=== PATIENT | male | born 1945 | race Caucasian/White ===

== ENCOUNTER 2016-06-14 07:38 | Outpatient (CLI) | payer MEDICARE, OTHER | END 2016-06-14 07:39 | disposition home or self-care (01) | DX: E11.9 Type 2 diabetes mellitus without complications (principal) ==

== ENCOUNTER 2016-07-05 10:09 | Outpatient (CLI) | payer MEDICARE, OTHER | END 2016-07-05 10:10 | disposition home or self-care (01) | DX: G47.33 Obstructive sleep apnea (adult) (pediatric) (principal) | CPT/HCPCS: 99214; G0463 ==

== ENCOUNTER 2016-09-11 14:34 | Outpatient (CLI) | payer MEDICARE, OTHER | END 2016-09-11 23:59 | disposition home or self-care (01) | DX: E11.9 Type 2 diabetes mellitus without complications (principal) ==

== ENCOUNTER 2016-09-17 13:27 | Outpatient (CLI) | payer MEDICARE, OTHER | END 2016-09-17 13:28 | disposition home or self-care (01) | DX: R39.11 Hesitancy of micturition (principal); E03.9 Hypothyroidism, unspecified ==

== ENCOUNTER 2016-11-05 08:00 | Outpatient (CLI) | payer MEDICARE, OTHER | END 2016-11-05 08:01 | LOC: LAB.N 08:00 | PROVIDERS: ATTEND Nurse Practitioner Gerontology | DX: R94.6 Abnormal results of thyroid function studies (principal) | CPT/HCPCS: 36415; 84443 ==

== ENCOUNTER 2016-12-25 08:00 | Outpatient (CLI) | payer MEDICARE, OTHER ==
[2016-12-25 13:36] LABS: HEMOGLOBIN A1C 0.86 g/dL
== END 2016-12-25 08:01 ==
LOC: LAB.N 08:00
PROVIDERS: ATTEND Nurse Practitioner Gerontology
DX: E11.22 Type 2 diabetes mellitus with diabetic chronic kidney disease (principal)
CPT/HCPCS: 36415; 83036; 84443

== ENCOUNTER 2017-02-11 14:33 | Outpatient (CLI) | payer MEDICARE, OTHER ==
[2017-02-11 19:55] LABS: ALBUMIN/GLOBULIN RATIO 1.4 (1.0-2.2); BILIRUBIN,TOTAL 0.7 mg/dL (0.2-1.0); CREATININE 1.1 mg/dL (0.6-1.2); POTASSIUM 4.4 mmol/L (3.5-5.0); TOTAL PROTEIN 6.9 g/dL (6.7-8.2)
== END 2017-02-11 14:34 | disposition home or self-care (01) ==
LOC: LAB.N 14:33
PROVIDERS: ATTEND Nurse Practitioner Gerontology
DX: E11.22 Type 2 diabetes mellitus with diabetic chronic kidney disease (principal)
CPT/HCPCS: 36415; 80053

== ENCOUNTER 2017-03-27 14:52 | Outpatient (CLI) | payer MEDICARE, OTHER ==
[2017-03-27 13:51] LABS: HEMOGLOBIN A1C 0.93 g/dL
== END 2017-03-27 14:53 | disposition home or self-care (01) ==
LOC: LAB.N 14:52
PROVIDERS: ATTEND Nurse Practitioner Gerontology
DX: E11.22 Type 2 diabetes mellitus with diabetic chronic kidney disease (principal)
CPT/HCPCS: 36415; 83036

== ENCOUNTER 2017-07-26 09:35 | Outpatient (CLI) | payer MEDICARE, OTHER ==
[2017-07-26 13:08] LABS: HB2 TOTAL 15.5 g/dL; HEMOGLOBIN A1C 1.03 g/dL; HEMOGLOBIN A1C % 8.2 % (4.6-6.2)
== END 2017-07-26 09:36 | disposition home or self-care (01) ==
LOC: LAB.N 09:35
PROVIDERS: ATTEND Nurse Practitioner Gerontology
DX: E11.22 Type 2 diabetes mellitus with diabetic chronic kidney disease (principal)
CPT/HCPCS: 36415; 83036

== ENCOUNTER 2017-08-07 09:59 | Outpatient (CLI) | payer MEDICARE, OTHER | END 2017-08-07 10:00 | disposition home or self-care (01) | LOC: SC 09:59 | PROVIDERS: ATTEND Nurse Practitioner Family | DX: G47.33 Obstructive sleep apnea (adult) (pediatric) (principal); G47.00 Insomnia, unspecified | CPT/HCPCS: 99214; G0463; 99212 ==

== ENCOUNTER 2017-10-31 09:52 | Outpatient (CLI) | payer MEDICARE, OTHER ==
[2017-10-31 12:38] LABS: HEMOGLOBIN A1C 0.68 g/dL; HEMOGLOBIN A1C % 6.3 % (4.6-6.2)
== END 2017-10-31 09:53 | disposition home or self-care (01) ==
LOC: LAB.N 09:52
PROVIDERS: ATTEND Nurse Practitioner Gerontology
DX: E11.22 Type 2 diabetes mellitus with diabetic chronic kidney disease (principal)
CPT/HCPCS: 36415; 83036

== ENCOUNTER 2018-02-04 08:00 | Outpatient (CLI) | payer MEDICARE, OTHER ==
[2018-02-04 13:10] LABS: CHOL/HDL RATIO 7.4 (<5.0); CHOLESTEROL 295 mg/dL; HDL CHOLESTEROL 40 mg/dL; LDL CHOLESTEROL,CALCULATED 208 mg/dL; LDL/HDL RATIO 5.2 (<3.6); VLDL CHOLESTEROL 47 mg/dL
[2018-02-04 13:18] LABS: HB2 TOTAL 14.7 g/dL; HEMOGLOBIN A1C 0.8 g/dL; HEMOGLOBIN A1C % 7.1 % (4.6-6.2)
== END 2018-02-04 08:01 ==
LOC: LAB.N 08:00
PROVIDERS: ATTEND Nurse Practitioner Gerontology
DX: E11.9 Type 2 diabetes mellitus without complications (principal); E03.9 Hypothyroidism, unspecified; E78.5 Hyperlipidemia, unspecified
CPT/HCPCS: 36415; 80061; 83036; 83721; 84443

== ENCOUNTER 2018-05-06 07:58 | Outpatient (CLI) | payer MEDICARE, OTHER ==
[2018-05-06 14:54] LABS: CALCIUM 8.9 mg/dL (8.5-10.3); CREATININE 1.2 mg/dL (0.6-1.2)
[2018-05-06 15:23] LABS: HEMOGLOBIN A1C 0.63 g/dL
== END 2018-05-06 23:59 ==
LOC: LAB.N 07:58
PROVIDERS: ATTEND Nurse Practitioner Gerontology
DX: E11.22 Type 2 diabetes mellitus with diabetic chronic kidney disease (principal)
CPT/HCPCS: 36415; 80048; 83036

== ENCOUNTER 2018-08-01 08:00 | Outpatient (CLI) | payer MEDICARE, OTHER ==
[2018-08-01 13:24] LABS: PSA FREE 0.42 ng/mL (0.16-2.81)
[2018-08-01 13:25] LABS: PSA TOTAL 2.42 ng/mL (0.000-2.000)
== END 2018-08-01 23:59 | disposition home or self-care (01) ==
LOC: LAB.N 08:00
PROVIDERS: ATTEND Nurse Practitioner Gerontology
DX: N40.0 Benign prostatic hyperplasia without lower urinary tract symptoms (principal)
CPT/HCPCS: 36415; 84153; 84154

== ENCOUNTER 2018-08-11 08:14 | Outpatient (CLI) | payer MEDICARE, OTHER ==
[2018-08-11 14:35] LABS: CHOLESTEROL 151 mg/dL; HDL CHOLESTEROL 50 mg/dL; LDL CHOLESTEROL,CALCULATED 78 mg/dL; LDL/HDL RATIO 1.6 (<3.6); VLDL CHOLESTEROL 23 mg/dL
[2018-08-11 14:49] LABS: HB2 TOTAL 15.5 g/dL; HEMOGLOBIN A1C 0.54 g/dL; HEMOGLOBIN A1C % 5.3 % (4.6-6.2)
== END 2018-08-11 23:59 ==
LOC: LAB.N 08:14
PROVIDERS: ATTEND Nurse Practitioner Gerontology
DX: E11.22 Type 2 diabetes mellitus with diabetic chronic kidney disease (principal); E78.5 Hyperlipidemia, unspecified; N18.9 Chronic kidney disease, unspecified
CPT/HCPCS: 36415; 80061; 83036; 83721

== ENCOUNTER 2018-11-17 07:33 | Outpatient (CLI) | payer MEDICARE, OTHER ==
[2018-11-17 12:33] LABS: HB2 TOTAL 14.5 g/dL; HEMOGLOBIN A1C 0.56 g/dL; HEMOGLOBIN A1C % 5.7 % (4.6-6.2)
== END 2018-11-17 23:59 | disposition home or self-care (01) ==
LOC: LAB.N 07:33
PROVIDERS: ATTEND Nurse Practitioner Gerontology
DX: E11.22 Type 2 diabetes mellitus with diabetic chronic kidney disease (principal)
CPT/HCPCS: 36415; 83036

== ENCOUNTER 2019-01-06 09:10 | Outpatient (CLI) | payer MEDICARE, OTHER ==
[2019-01-06 10:25] VITALS: BP 110/60
--- NOTE | 2019-01-06 10:25 | SLEEP CARE CONSULTATION ---
Information from patient questionnaire entered by Candace Aguila. I have reviewed and concur with the information entered by Candace Aguila. This document represents the service I personally performed and the decisions made by me, Dorota Hernandez, RN, MSN, WO[employer]. History of Present Illness Previous diagnosis: Severe, Obstructive Sleep Apnea-Hypopnea Syndrome AHI: 66.6 Reason for CPAP/BiPAP follow up: annual Equipment type: CPAP Equipment obtained from: [employer] Mask style: Nasal (True Blue) Mask brand: Respironics Backup mask available: Yes Last cushion change: a month Prior sleep studies: Yes Year and Where: 2006 here HPI additional information: Changes in medical history since last seen are a "arterectomy" of right leg to improve circulation. CPAP Compliance Data - Data Reviewed with Patient Average duration of nightly device use: 8H 28M Compliance rate %: 96 Current pressure setting (cmH2O): 15 Average residual AHI: 0.7 Average large leak: 0.6 liters per hour Subjective Patient concerns: reports: air blowing in eyes (initially only when adjusting mask for night set up ). denies: aerophagia, mask discomfort (only when over tightens), mask leak noise, condensation in mask/hose, nasal congestion, dry mouth, nose, throat, epistaxis Observed to snore while using device: No On therapy, patient: reports: sleeping better, awakening more refreshed, being more awake and alert during the day, more rested overall. denies: drowsiness while driving Initial [place] Sleepiness Scale score: 4 Current [place] Sleepiness Scale score: 4 Allergies and Home Medications Known drug allergies: Yes (penicillin) Home medication list reviewed: Yes Allergy and home medication list: Medication Name (generic/name brand) Strength & Dosage Omeprazole 20mg cap one daily Mometasone Furoate 0.1% Ext. Cream Apply as directed Nystatin-Triamcinolone [id number]% Apply as directed Vitamin D3 5000Unit cap one daily Synthroid 50mcg tab one daily Magnesium Oxide 400mg cap one daily Terazosin HCl 10cap one daily HS Econazole Nitrate 1% ext. cream Apply to feet daily Desonide 0.05% ext. lotion Apply to face daily Apidra Solostar 100 UNIT/ML Inject daily with meals and on SS Lantus Solostar 100 UNIT/ML Inject 70 units SQ at bedtime Fish Oil Concentrate 1000mg cap one twice daily Plavix 75mg tab one daily Metoprolol Tartrate 25mg tab one twice a day omeprazole 20mg daily as needed Losartan Potassium 25mg tab one daily Cinsulin 1000mg twice daily B1 150mg daily D3 5000units Proscar 5mg HS Crestor 10mg HS Review of Systems Review of systems same as previous: No Physical Exam Blood Pressure: 110/60 Cuff size: long Heart Rate: 67 O2 Saturation: 97 Weight (kg): 225.2 kg Weight change since last visit: lost 26 pounds since last visit Impression and Plan 1. Obstructive Sleep Apnea-Hypopnea Syndrome, with good treatment compliance and good apnea control. On CPAP therapy, the patient has better sleep quality and is more rested overall. He is pleased with treatment and plans on continuing. He has lost 26 pounds and plans on losing about 50 more pounds. I discussed how continued significant weight loss can reduce his pressure requirements. Thus I will change him to an autoCPAP setting of [id number]. He will call me if any pressure discomfort with change. Other symptoms to report that indicate pressure adjustment needed were discussed. I gave him an updated CPAP supply replacement schedule for reference. He is due for a new device but current one is functioning fine and declined updating at this time. He was advised of symptoms of device failure and to contact this office JUN due to severity of apnea. If he is planning on a vacation out of town, it may be prudent to update before leaving. Updating device requires a DWO prescription and he must be seen within 6 months of prescription. Patient's apnea severity and rationale for treatment to reduce apnea, improve sleep quality and reduce cardiovascular and cerebrovascular events was reviewed. I also reviewed the benefit of consistent device use of CPAP for hypertension, diabetes. * Change CPAP pressure to 12-15 cmH2O * Update device if any disfunction noted or increase in noise. * Notify me if snoring with mask or feeling that the pressure is too much or too little * Continue to lose weight * Return for follow up in 1 year , or sooner if concerns arise I spent 100% of this [34] minute visit face to face with the patient with greater than 50% of this was spent time counseling the patient and coordination of care.
== END 2019-01-06 09:11 | disposition home or self-care (01) ==
LOC: SC 09:10
PROVIDERS: ATTEND Nurse Practitioner Family
DX: G47.33 Obstructive sleep apnea (adult) (pediatric) (principal)
CPT/HCPCS: 99215; G0463; 99212

== ENCOUNTER 2019-02-20 08:22 | Outpatient (CLI) | payer MEDICARE, OTHER ==
[2019-02-20 13:51] LABS: HB2 TOTAL 14.9 g/dL; HEMOGLOBIN A1C 0.62 g/dL
== END 2019-02-20 23:59 | disposition home or self-care (01) ==
LOC: LAB.N 08:22
PROVIDERS: ATTEND Nurse Practitioner Gerontology
DX: E11.22 Type 2 diabetes mellitus with diabetic chronic kidney disease (principal); N18.9 Chronic kidney disease, unspecified
CPT/HCPCS: 36415; 83036

== ENCOUNTER 2019-04-28 11:37 | Outpatient (CLI) | payer MEDICARE, OTHER ==
[2019-04-28 19:00] LABS: BUN - BLOOD UREA NITROGEN 23 mg/dL (6-20); CALCIUM 8.8 mg/dL (8.5-10.3); CARBON DIOXIDE - CO2 28 mmol/L (21-32); CHLORIDE 107 mmol/L (101-111); CHOL/HDL RATIO 3.1 (<5.0); CHOLESTEROL 129 mg/dL; CREATININE 1.4 mg/dL (0.6-1.2); GFR - MDRD 49 (>89); GLUCOSE 155 mg/dL (70-100); HDL CHOLESTEROL 41 mg/dL; LDL CHOLESTEROL,CALCULATED 70 mg/dL; LDL/HDL RATIO 1.7 (<3.6); SODIUM 141 mmol/L (135-145); VLDL CHOLESTEROL 18 mg/dL
== END 2019-04-28 23:59 | disposition home or self-care (01) ==
LOC: LAB.N 11:37
PROVIDERS: ATTEND Internal Medicine Interventional Cardiology
DX: I73.9 Peripheral vascular disease, unspecified (principal); E11.9 Type 2 diabetes mellitus without complications; E78.2 Mixed hyperlipidemia
CPT/HCPCS: 36415; 80048; 80061; 83721

== ENCOUNTER 2020-01-18 11:40 | Outpatient (CLI) | payer MEDICARE, OTHER ==
[2020-01-18 18:22] LABS: BASOPHILS # (AUTO) 0.1 10^3/uL (0.0-0.1); BASOPHILS % (AUTO) 0.9 %; EOSINOPHILS # (AUTO) 0.1 10^3/uL (0.0-0.7); EOSINOPHILS % (AUTO) 1.4 %; HGB - HEMOGLOBIN 14.2 g/dL (14.0-18.0); LYMPHOCYTES # (AUTO) 1.5 10^3/uL (1.5-3.5); LYMPHOCYTES % (AUTO) 26.8 %; MEAN CORPUSCULAR HEMOGLOBIN 30.9 pg (27.0-31.0); MEAN CORPUSCULAR HGB CONC 31.8 g/dL (32.0-36.0); MEAN CORPUSCULAR VOLUME 97.2 fL (80.0-94.0); MEAN PLATELET VOLUME 12.9 fL (7.4-11.4); MONOCYTES # (AUTO) 0.4 10^3/uL (0.0-1.0); MONOCYTES % (AUTO) 7.6 %; NEUTROPHILS # (AUTO) 3.5 10^3/uL (1.5-6.6); NEUTROPHILS % (AUTO) 62.4 %; PLT - PLATELET COUNT 157 10^3/uL (130-450); RED CELL DISTRIBUTION WIDTH 13.9 % (12.0-15.0); WHITE BLOOD COUNT 5.6 x10^3/uL (4.8-10.8)
[2020-01-18 18:38] LABS: ALBUMIN 4.4 g/dL (3.2-5.5); ALBUMIN/GLOBULIN RATIO 1.8 (1.0-2.2); ALKALINE PHOSPHATASE 59 IU/L (42-121); ALT ALANINE AMINOTRANSFERASE 10 IU/L (10-60); AST ASPARTATE AMINOTRANSFERASE 15 IU/L (10-42); BILIRUBIN,TOTAL 0.6 mg/dL (0.2-1.0); BUN - BLOOD UREA NITROGEN 25 mg/dL (6-20); CALCIUM 9.3 mg/dL (8.5-10.3); CARBON DIOXIDE - CO2 26 mmol/L (21-32); CHLORIDE 108 mmol/L (101-111); CHOLESTEROL 126 mg/dL; CREATININE 1.2 mg/dL (0.6-1.2); GLUCOSE 158 mg/dL (70-100); HDL CHOLESTEROL 42 mg/dL; LDL CHOLESTEROL,CALCULATED 60 mg/dL; LDL/HDL RATIO 1.4 (<3.6); SODIUM 140 mmol/L (135-145); TOTAL PROTEIN 6.9 g/dL (6.7-8.2); VLDL CHOLESTEROL 24 mg/dL
[2020-01-18 18:39] LABS: CREATININE,URINE 115.6 mg/dL; MICROALBUM/CREATININE RATIO,UR 87.4 ug/mg (<30.0); MICROALBUMIN,URINE 10.1 mg/dL (0-300.0)
[2020-01-18 19:27] LABS: HEMOGLOBIN A1c% 7.1 % (4.27-6.07)
== END 2020-01-18 23:59 | disposition home or self-care (01) ==
LOC: LAB.WCP 11:40
PROVIDERS: ATTEND Physician Assistant
DX: E78.5 Hyperlipidemia, unspecified (principal); E11.22 Type 2 diabetes mellitus with diabetic chronic kidney disease; N40.0 Benign prostatic hyperplasia without lower urinary tract symptoms; E03.9 Hypothyroidism, unspecified
CPT/HCPCS: 36415; 80053; 80061; 82043; 82570; 83036; 83721; 84153; 84443; 85025

== ENCOUNTER 2020-01-27 10:56 | Outpatient (CLI) | payer MEDICARE, OTHER ==
[2020-01-27 11:54] VITALS: BP 116/60
--- NOTE | 2020-01-27 11:54 | SLEEP CARE CONSULTATION ---
Information from patient questionnaire entered by Violeta Reeder. I have reviewed and concur with the information entered by Violeta Reeder. This document represents the service I personally performed and the decisions made by me, Dorota Hernandez, RN, MSN, INFORMATION RECEPTIONIST. History of Present Illness Service Date and Time: 01/27/2020 1056 Previous diagnosis: Severe, Obstructive Sleep Apnea-Hypopnea Syndrome AHI: 66.6 (in 2006) Reason for follow up: annual (last seen 2018) Equipment type: CPAP Equipment obtained from: [email or web address] (getting equipment as needed) Mask style: Nasal Mask brand: Respironics (True blue) Backup mask available: Yes (old mask ) Last cushion change: 1 month Prior sleep studies: Yes Year and Where: 2006 - [facility], 1998 - [facility] Type of Sleep Study: Polysomnography Sleep Study - Results Prior sleep studies: Yes Year and Where: 2006 here CPAP Compliance Data - Data Reviewed with Patient Average duration of nightly device use: 8.9 Compliance rate %: 98 (180 days) Current pressure setting (cmH2O): 12-15 Average residual AHI: 1.4 Subjective Patient concerns: reports: other (device has started to make loud noise with use and wants to have replaced). denies: aerophagia, mask discomfort, air blowing in eyes, mask leak noise, condensation in mask/hose, nasal congestion, dry mouth, nose, throat, epistaxis Current pressure setting perceived as: comfortable On therapy, patient: reports: sleeping better, awakening more refreshed, being more awake and alert during the day, more rested overall. denies: drowsiness while driving Initial [place] Sleepiness Scale score: 4 (in 2006) Current [place] Sleepiness Scale score: 6 Allergies and Home Medications Known drug allergies: Yes (see list ) Home medication list reviewed: Yes (metoprolol increased to 50mg bid ) Review of Systems Review of systems same as previous: No (aortic bypass right leg to restore circulation twice) Physical Exam Blood Pressure: 116/60 Cuff size: long Heart Rate: 55 O2 Saturation: 99 Height: 5 ft 7 in Weight: 236 lb 9.6 oz (losing and gaining weight) Body Mass Index: 37.0 BMI Classification: Obese Impression and Plan 1. Obstructive Sleep Apnea-Hypopnea Syndrome, severe, with good treatment compliance and good apnea control. On CPAP therapy, the patient has better sleep quality and is more rested overall. The patients CPAP is over 5 years old and of reasonable use. In addition, it is starting to make louder noise, a sign of malfunction. Thus, the CPAP will be updated. A DWO prescription will be made. Compliance guidelines for new device and follow up discussed. Patient has gainged and lost weight. 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 Currently patients BMI is 37.0 obesity class . Obesity increases the risk of apnea, CPAP pressure requirements and overall health risks especially cardiovascular and diabetes. Thus patient is advised to continue to lose weight. Weight loss can be done with reducing portion size, reducing refined foods and balancing content with vegetables, fruit and protein. In addition tracking food intake will allow awareness of how to modify diet to achieve weight loss goals. Also eating more slowly will allow more awareness of food intake and enjoyment of food while assisting patient to modify intake at each meal. A diet consultation can be helpful in achieving optimal weight loss goals. He is also advised of the benefit of the [facility] diabeti program and he took a brochure. He is advised to discuss a referral from his PCP. The BMI chart was reviewed. The patient would like to reduce to 20 pounds and eventually to 185 bringing their BMI down to about 29. Patient encouraged to discuss their weight loss goals with their PCP and consider a referral to a bag adjuster. The patient's CPAP pressure was changed to 10-14 cmH2O to accommodate future weight loss. Symptoms to report for additional pressure adjustment discussed. Patient's apnea severity and rationale for treatment to reduce apnea, improve sleep quality and reduce cardiovascular and cerebrovascular events was reviewed. I also reviewed the benefit of consistent device use of CPAP for hypertension, diabetes, . UPdate CPAP * Changeauto CPAP pressure to 10-14 cmH2O * Notify me if snoring with mask or feeling that the pressure is too much or too little * Continue to lose weight * Call this office if any problems using CPAP * Return for follow up in 6 weeks after new device , or sooner if concerns arise Visit Type: In Office Time Spent with Patient (minutes): 30 Provider Statement: I spent 100% of the Face to Face Visit with the patient with greater than 50% spent counseling the patient and coordination of care.
== END 2020-01-27 10:57 | disposition home or self-care (01) ==
LOC: SC 10:56
PROVIDERS: ATTEND Nurse Practitioner Family
DX: G47.33 Obstructive sleep apnea (adult) (pediatric) (principal); E66.9 Obesity, unspecified; Z68.37 Body mass index [BMI] 37.0-37.9, adult
CPT/HCPCS: 99214; G0463; 99212

== ENCOUNTER 2020-03-31 13:26 | Outpatient (CLI) | payer MEDICARE, OTHER ==
--- NOTE | 2020-03-31 14:09 | SLEEP CARE CONSULTATION ---
Information from patient questionnaire entered by Silvestre Garcia. I have reviewed and concur with the information entered by Silvestre Garcia. This document represents the service I personally performed and the decisions made by me, Nancy Sanz ARNP. History of Present Illness Service Date and Time: 03/31/2020 1326 Previous diagnosis: Severe, Obstructive Sleep Apnea-Hypopnea Syndrome AHI: 66.6 (in 2006) Reason for follow up: first compliance (02/21), first compliance after device update Equipment type: CPAP Equipment obtained from: [employer] (getting equipment as needed) Mask style: Full face Backup mask available: Yes (old mask, over the nose) Last cushion change: 5 days Prior sleep studies: Yes Year and Where: 2006 [facility] additional information: ROSSI ARAUJO was diagnosed to have severe, AHI 66.6, obstructive sleep apnea- hypopnea syndrome and returned today for CPAP therapy first compliance follow- up. Sleep Study - Results Prior sleep studies: Yes Year and Where: 2006 here CPAP Compliance Data - Data Reviewed with Patient Average duration of nightly device use: 8 h 45 min Compliance rate %: 100 Current pressure setting (cmH2O): 10-13 Heated hose settin degrees Average residual AHI: 0.7 Compliance data discussion: Heated hose temperature set at 66 degrees. He is going through water daily in the humidifier. Subjective Patient concerns: reports: mask discomfort (changed twice to full face sizes; tighting it and hurting face), nasal congestion, dry mouth, nose, throat (dry mouth and throat), epistaxis (every day), other (headaches). denies: aerophagia, air blowing in eyes, mask leak noise, condensation in mask/hose Observed to snore while using device: Yes (just recently with mask change) Current pressure setting perceived as: comfortable On therapy, patient: reports: sleeping better, awakening more refreshed, being more awake and alert during the day, more rested overall, other (recent changes have made things more difficult, he is sleeping more and not feeling rested like before). denies: drowsiness while driving Initial [place] Sleepiness Scale score: 4 (in 2006) Current [place] Sleepiness Scale score: 5 Allergies and Home Medications Drug allergies reviewed: Yes (penicillin) Home medication list reviewed: Yes (zinc 50 mg; list provide of all medications) Review of Systems Review of systems same as previous: No (October 2019 arterectomy) Physical Exam Heart Rate: 74 O2 Saturation: 97 Height: 5 ft 7 in Weight: 240 lb 12.8 oz Body Mass Index: 37.7 BMI Classification: Obese Impression and Plan 1. Obstructive Sleep Apnea-Hypopnea Syndrome, severe, with good treatment compliance and good apnea control. On CPAP therapy, the patient has better sleep quality and is more rested overall. He has been having mask issue with some leaking since changing to the full face mask from a nasal (Wisp type) mask. He is having dry nose and throat with some bloody noses. H has not yet increased the humidity on the machine and he was instructed to do so to reduce dryness. He has had two different sizes of the full face mask and is working with DME to get another size to see if this will fit better. He is waiting for a return call. I advised that he may use the old nasal mask until the new mask is replaced to help reduce fit/leaking issues. He has been not sleeping as well with this new machine so far but it appears to be due to the mask. He was instructed to let us know if the new mask does not fit well once replaced and may want to try a different type of nasal mask instead of full face. He voiced understanding and will notify us if needs help with mask replacement or refitting. Patient's apnea severity and rationale for treatment to reduce apnea, improve sleep quality and reduce cardiovascular and cerebrovascular events was reviewed. I also reviewed the benefit of consistent device use of CPAP for hypertension. * Continue auto CPAP pressure at 10-13 cmH2O * Notify me if snoring with mask or feeling that the pressure is too much or too little * Attempt to lose weight * Call this office if any problems using CPAP * Return for follow up in 1 year, or sooner if concerns arise Counseling Topics: Spare mask, Weight loss health impact Visit Type: In Office Time Spent with Patient (minutes): 22 Provider Statement: I spent 100% of the Face to Face Visit with the patient with greater than 50% spent counseling the patient and coordination of care.
== END 2020-03-31 13:27 | disposition home or self-care (01) ==
LOC: SC 13:26
PROVIDERS: ATTEND Nurse Practitioner Family
DX: G47.33 Obstructive sleep apnea (adult) (pediatric) (principal); E66.9 Obesity, unspecified; Z68.37 Body mass index [BMI] 37.0-37.9, adult
CPT/HCPCS: 99213; G0463; 99212

== ENCOUNTER 2020-07-17 15:45 | Emergency (ER) | payer MEDICARE, OTHER ==
[2020-07-17 15:55] VITALS: BP 158/74
--- NOTE | 2020-07-17 16:36 | ED Physician Documentation ---
History of Present Illness - Stated complaint Stated Complaint: RIGHT SIDE EAR & HEAD PX - Chief complaint Chief Complaint: Neuro - History obtained from History obtained from: Patient - History of Present Illness Timing: Last night - Additonal information Additional information: 75 y/o male has developed some pain to the right side of the head and ear. He describes the pain as severe and brief. The skin seems very sensitive. He did have some tiny blisters in front of the ear that he picked off yesterday. He has not otherwise been ill. Review of Systems Constitutional: denies: Fever Eyes: denies: Decreased vision Ears: reports: Ear pain, Other (sensitive to touch). denies: Loss of hearing, Drainage/discharge, Tinnitus/ringing, Foreign body Nose: denies: Rhinorrhea / runny nose, Congestion Throat: denies: Sore throat Cardiac: denies: Chest pain / pressure Respiratory: denies: Dyspnea, Cough GI: denies: Abdominal Pain, Nausea, Vomiting : denies: Dysuria, Frequency Skin: reports: Rash Musculoskeletal: denies: Neck pain, Back pain, Extremity pain PD PAST MEDICAL HISTORY - Past Medical History Cardiovascular: Hypertension, High cholesterol, Coronary artery disease, Atrial fibrillation Respiratory: Sleep apnea, CPAP use Endocrine/Autoimmune: Type 2 diabetes GI: Colon polyps : Benign prostate hypertrophy Musculoskeletal: None Derm: Other - Past Surgical History Past Surgical History: Yes General: Colonoscopy HEENT: Tonsil/Adenoidectomy - Present Medications Home Medications: Ambulatory Orders Medication Instructions Recorded Confirmed [facility] Fish Oil 1,000 mg PO DAILY 03/10/14 12/16/14 Cinsulin 1,000 mg PO DAILY 03/10/14 12/16/14 Clopidogrel Bisulfate [Plavix] 75 mg PO DAILY 03/10/14 12/16/14 Insulin Glargine [Lantus Solostar] 70 unit SUBQ QPM 03/10/14 12/16/14 Insulin Glulisine [Apidra Solostar] 5 - 20 unit SQ AC 03/10/14 12/16/14 Metoprolol Tartrate 25 mg PO BID 03/10/14 12/16/14 Omeprazole 20 mg PO DAILY 03/10/14 12/16/14 Terazosin HCl 10 mg PO QPM 03/10/14 12/16/14 Losartan [Cozaar] 25 mg PO DAILY 12/16/14 12/16/14 diazePAM [Valium] 5 mg PO TID PRN #15 tablet 12/16/14 Aspirin [Aspirin EC] 81 mg PO 07/17/20 07/17/20 Cholecalciferol [Vitamin D3] 5,000 unit 07/17/20 07/17/20 Levothyroxine [Synthroid] 50 mcg PO QDAC 07/17/20 07/17/20 Valacyclovir HCl [Valtrex] 1,000 mg PO TID #21 tab 07/17/20 - Allergies Allergies/Adverse Reactions: Allergies Allergy/AdvReac Type Severity Reaction Status Date / Time Penicillins Allergy Rash Verified 07/17/20 15:55 - Social History Does the pt smoke?: Yes Smoking Status: Current every day smoker Does the pt drink ETOH?: No Does the pt have substance abuse?: No - Immunizations Immunizations are current?: No Immunizations: TDAP >10years/unknown PD ED PE NORMAL - Vitals Vital signs reviewed: Yes (hypertensive ) - General General: Alert and oriented X 3, No acute distress, Well developed/nourished - HEENT HEENT: Atraumatic, PERRL, EOMI, Ears normal, Pharynx benign, Other (There is tenderness or sensitivity to the right ear to light touch. There is no abnormailty or swelling noted. There is tenderness behind the right ear as well. There is not scalp tenderness now but was present earlier. There are 3 small red areas to the sabianist non-specific ) - Neck Neck: Supple, no meningeal sign, No bony TTP - Respiratory Respiratory: No respiratory distress - Derm Derm: Normal color, Warm and dry - Extremities Extremities: No deformity, No edema - Neuro Neuro: Alert and oriented X 3, captain fishing vessel 2-12 intact, No motor deficit, No sensory deficit, Normal speech Eye Opening: Spontaneous Motor: Obeys Commands Verbal: Oriented GCS Score: 15 - Psych Psych: Normal mood, Normal affect PD ED PE EXPANDED - Eyes Eyes: PERRL, Right eye, Anterior chambers clear. No: Eyelid swelling, Eyelid erythema, Corneal FB, Corneal abrasion, Corneal ulcer, Fluorescein uptake Results - Vitals Vitals: Vital Signs - 24 hr 07/17/20 15:51 Temperature 36.4 C L Heart Rate 86 Respiratory 18 Rate Blood Pressure 158/74 H O2 Saturation 98 Oxygen O2 Source Room air PD MEDICAL DECISION MAKING - ED course Complexity details: considered differential, d/w patient ED course: 75-year-old male with supersensitive skin to the scalp and right ear has intermittent lancinating pain in his history is consistent with zoster. We will treat him with a course of valacyclovir. Departure - Departure Disposition: Home, Self Care Clinical Impression: Shingles Qualifiers: Herpes zoster complications: without complications Qualified Code(s): B02.9 - Zoster without complications Condition: Stable Instructions: ED Shingles Follow-Up: Curt Lisa MD [Primary Care Provider] - Prescriptions: Valacyclovir HCl [Valtrex] 1,000 mg PO TID #21 tab
== END 2020-07-17 16:48 | disposition home or self-care (01) ==
LOC: ED 15:45
DX: B02.9 Zoster without complications (principal); I10 Essential (primary) hypertension; E11.9 Type 2 diabetes mellitus without complications; Z79.4 Long term (current) use of insulin; Z79.02 Long term (current) use of antithrombotics/antiplatelets; Z79.82 Long term (current) use of aspirin; F17.200 Nicotine dependence, unspecified, uncomplicated
CPT/HCPCS: 99282; 99284

== ENCOUNTER 2020-09-02 08:00 | Outpatient (CLI) | payer MEDICARE, OTHER ==
[2020-09-02 12:28] LABS: CREATININE,URINE 166.2 mg/dL; MICROALBUM/CREATININE RATIO,UR 108.9 ug/mg (<30.0); MICROALBUMIN,URINE 18.1 mg/dL (0-300.0)
== END 2020-09-02 23:59 | disposition home or self-care (01) ==
LOC: LAB.WCP 08:00
PROVIDERS: ATTEND Family Medicine
DX: E11.22 Type 2 diabetes mellitus with diabetic chronic kidney disease (principal)
CPT/HCPCS: 36415; 82043; 82570

== ENCOUNTER 2020-12-05 08:00 | Outpatient (CLI) | payer MEDICARE, OTHER ==
[2020-12-05 13:10] LABS: BASOPHILS % (AUTO) 0.5 %; HCT - HEMATOCRIT 42.8 % (42.0-52.0); HGB - HEMOGLOBIN 13.7 g/dL (14.0-18.0); MEAN CORPUSCULAR VOLUME 93.9 fL (80.0-94.0); MEAN PLATELET VOLUME 12.6 fL (7.4-11.4); MONOCYTES # (AUTO) 0.7 10^3/uL (0.0-1.0); MONOCYTES % (AUTO) 9.3 %; NEUTROPHILS # (AUTO) 5.1 10^3/uL (1.5-6.6); NEUTROPHILS % (AUTO) 64.1 %; PLT - PLATELET COUNT 189 10^3/uL (130-450); RED BLOOD COUNT 4.56 10^6/uL (4.70-6.10); RED CELL DISTRIBUTION WIDTH 13.7 % (12.0-15.0)
[2020-12-05 13:26] LABS: ALBUMIN 4.1 g/dL (3.2-5.5); ALBUMIN/GLOBULIN RATIO 1.6 (1.0-2.2); ALKALINE PHOSPHATASE 55 IU/L (42-121); ALT ALANINE AMINOTRANSFERASE 13 IU/L (10-60); AST ASPARTATE AMINOTRANSFERASE 20 IU/L (10-42); BILIRUBIN,TOTAL 0.5 mg/dL (0.2-1.0); BUN - BLOOD UREA NITROGEN 19 mg/dL (6-20); CALCIUM 8.6 mg/dL (8.5-10.3); CARBON DIOXIDE - CO2 25 mmol/L (21-32); CHLORIDE 106 mmol/L (101-111); CHOL/HDL RATIO 3.5 (<5.0); CHOLESTEROL 146 mg/dL; GFR - MDRD 73 (>89); GLUCOSE 124 mg/dL (70-100); HDL CHOLESTEROL 42 mg/dL; LDL CHOLESTEROL,CALCULATED 73 mg/dL; LDL/HDL RATIO 1.7 (<3.6); SODIUM 139 mmol/L (135-145); TOTAL PROTEIN 6.6 g/dL (6.7-8.2); TRIGLYCERIDES 154 mg/dL; VLDL CHOLESTEROL 31 mg/dL
[2020-12-05 13:34] LABS: ESTIMATED AVERAGE GLUCOSE 183 mg/dL (70-100); THYROID STIMULATING HORMONE 8.74 uIU/mL (0.34-5.60)
[2020-12-05 13:38] LABS: CREATININE,URINE 163.9 mg/dL; MICROALBUM/CREATININE RATIO,UR 69.6 ug/mg (<30.0); MICROALBUMIN,URINE 11.4 mg/dL (0-300.0)
[2020-12-05 14:19] LABS: FREE T4 (FREE THYROXINE) 0.93 ng/dL (0.58-1.64)
== END 2020-12-05 23:59 | disposition home or self-care (01) ==
LOC: LAB.WCP 08:00
PROVIDERS: ATTEND Family Medicine
DX: R80.9 Proteinuria, unspecified (principal); E66.9 Obesity, unspecified; I73.9 Peripheral vascular disease, unspecified; E11.9 Type 2 diabetes mellitus without complications; E03.9 Hypothyroidism, unspecified; E78.5 Hyperlipidemia, unspecified; I10 Essential (primary) hypertension
CPT/HCPCS: 36415; 80053; 80061; 82043; 82570; 83036; 83721; 84439; 84443; 85025

== ENCOUNTER 2021-03-06 07:37 | Outpatient (CLI) | payer MEDICARE, OTHER ==
[2021-03-06 11:40] LABS: BASOPHILS % (AUTO) 0.6 %; EOSINOPHILS # (AUTO) 0.3 10^3/uL (0.0-0.7); EOSINOPHILS % (AUTO) 4.9 %; HCT - HEMATOCRIT 42.6 % (42.0-52.0); HGB - HEMOGLOBIN 13.4 g/dL (14.0-18.0); LYMPHOCYTES # (AUTO) 1.7 10^3/uL (1.5-3.5); LYMPHOCYTES % (AUTO) 24.4 %; MEAN CORPUSCULAR HGB CONC 31.5 g/dL (32.0-36.0); MEAN CORPUSCULAR VOLUME 95.5 fL (80.0-94.0); MEAN PLATELET VOLUME 12.4 fL (7.4-11.4); MONOCYTES # (AUTO) 0.6 10^3/uL (0.0-1.0); NEUTROPHILS # (AUTO) 4.2 10^3/uL (1.5-6.6); PLT - PLATELET COUNT 180 10^3/uL (130-450); RED BLOOD COUNT 4.46 10^6/uL (4.70-6.10); RED CELL DISTRIBUTION WIDTH 13.8 % (12.0-15.0)
[2021-03-06 12:13] LABS: ESTIMATED AVERAGE GLUCOSE 163 mg/dL (70-100); HEMOGLOBIN A1c% 7.3 % (4.27-6.07)
[2021-03-06 12:15] LABS: ALBUMIN 4.2 g/dL (3.2-5.5); ALBUMIN/GLOBULIN RATIO 1.8 (1.0-2.2); ALKALINE PHOSPHATASE 52 IU/L (42-121); ALT ALANINE AMINOTRANSFERASE 17 IU/L (10-60); AST ASPARTATE AMINOTRANSFERASE 20 IU/L (10-42); BILIRUBIN,TOTAL 0.9 mg/dL (0.2-1.0); BUN - BLOOD UREA NITROGEN 22 mg/dL (6-20); CALCIUM 8.8 mg/dL (8.5-10.3); CARBON DIOXIDE - CO2 24 mmol/L (21-32); CHLORIDE 106 mmol/L (101-111); CHOL/HDL RATIO 3.3 (<5.0); CHOLESTEROL 136 mg/dL; CREATININE 1.1 mg/dL (0.6-1.2); GFR - MDRD 65 (>89); GLUCOSE 123 mg/dL (70-100); HDL CHOLESTEROL 41 mg/dL; LDL CHOLESTEROL,CALCULATED 63 mg/dL; LDL/HDL RATIO 1.5 (<3.6); POTASSIUM 3.9 mmol/L (3.5-5.0); SODIUM 140 mmol/L (135-145); TOTAL PROTEIN 6.5 g/dL (6.7-8.2); TRIGLYCERIDES 158 mg/dL; VLDL CHOLESTEROL 32 mg/dL
[2021-03-06 12:17] LABS: THYROID STIMULATING HORMONE 5.98 uIU/mL (0.34-5.60)
[2021-03-06 13:04] LABS: FREE T4 (FREE THYROXINE) 0.85 ng/dL (0.58-1.64)
== END 2021-03-06 23:59 | disposition home or self-care (01) ==
LOC: LAB.WCP 07:37
PROVIDERS: ATTEND Family Medicine
DX: E66.9 Obesity, unspecified (principal); E11.22 Type 2 diabetes mellitus with diabetic chronic kidney disease; E03.9 Hypothyroidism, unspecified; I10 Essential (primary) hypertension; E78.5 Hyperlipidemia, unspecified
CPT/HCPCS: 36415; 80053; 80061; 83036; 83721; 84439; 84443; 85025

== ENCOUNTER 2021-04-07 09:37 | Outpatient (CLI) | payer MEDICARE, OTHER ==
--- NOTE | 2021-04-07 10:15 | SLEEP CARE CONSULTATION ---
Information from patient questionnaire entered by Silvestre Garcia. I have reviewed and concur with the information entered by Silvestre Garcia. This document represents the service I personally performed and the decisions made by , Nancy Sanz ARNP. History of Present Illness Service Date and Time: 04/07/2021 0937 Previous diagnosis: Severe, Obstructive Sleep Apnea-Hypopnea Syndrome AHI: 66.6 (in 2006) Reason for follow up: annual (Last seen 03/2020) Equipment type: CPAP Equipment obtained from: [employer] (getting equipment as needed) Mask style: Nasal (Wisp) Mask brand: Respironics Backup mask available: Yes (old mask) Last cushion change: 1 month Prior sleep studies: Yes Year and Where: 2006 here HPI additional information: ROSSI ARAUJO was diagnosed to have severe, AHI 66.6, obstructive sleep apnea-hy popnea syndrome and returned today for CPAP therapy annual follow-up. CPAP Compliance Data - Data Reviewed with Patient Average duration of nightly device use: 8 h 53 min Compliance rate %: 98 Current pressure setting (cmH2O): 10-13 Average residual AHI: 0.9 Central apnea: 0.2 Obstructive apnea: 0.4 Subjective Patient concerns: reports: mask leak noise (from the top hose, he has a Resmed tub connect that is not fitting right). denies: aerophagia, mask discomfort, air blowing in eyes, condensation in mask/hose, nasal congestion, dry mouth, nose, throat, epistaxis, other Observed to snore while using device: No Current pressure setting perceived as: comfortable On therapy, patient: reports: sleeping better, awakening more refreshed, being more awake and alert during the day, more rested overall. denies: drowsiness while driving Initial [place] Sleepiness Scale score: 4 (in 2006) Current [place] Sleepiness Scale score: 5 Allergies and Home Medications Home medication list reviewed: Yes (increase in thyroid medication dose) Review of Systems Review of systems same as previous: Yes (no changes) Physical Exam Vital signs obtained and entered by: MELANIE Mendez Blood Pressure: 136/78 Cuff size: wrist Heart Rate: 71 O2 Saturation: 98 Height: 5 ft 7 in Weight: 240 lb Body Mass Index: 37.5 BMI Classification: Obese Impression and Plan 1. Obstructive Sleep Apnea-Hypopnea Syndrome, severe, with good treatment compliance and excellent apnea control. On CPAP therapy, the patient has better sleep quality and is more rested overall. Patient has been having some weakness from the tubing of the top of his mask. He changed to a [employer] Wisp mask and the ResMed tubing does not seat completely into the mask fitting. I advised patient that he could either use a piece of tape or look for the tubing at home that fits more snugly into the fitting of his mask headpiece. Patient's apnea severity and rationale for treatment to reduce apnea, improve sleep quality and reduce cardiovascular and cerebrovascular events was reviewed. I also reviewed the benefit of consistent device use of CPAP for hypertension. Patient states he has been going to going up and down with his weight over the last year but maintaining about 240 pounds. He has not been walking as much as he used to. I encouraged him to increase his activity and to concentrate on eating more nutritious foods and less processed and packaged foods that are high in sugar and empty calories. He voiced understanding and agreement. * Continue auto CPAP pressure at 10-13 cmH2O * Notify me if snoring with mask or feeling that the pressure is too much or too little * Attempt to lose weight * Call this office if any problems using CPAP * Return for follow up in 1 year, or sooner if concerns arise Counseling Topics: Spare mask, Weight loss health impact Visit Type: In Office Time Spent with Patient (minutes): 16 Provider Statement: I spent 100% of the Face to Face Visit with the patient with greater than 50% spent counseling the patient and coordination of care.
[2021-04-07 10:16] VITALS: BP 136/78
== END 2021-04-07 09:38 | disposition home or self-care (01) ==
LOC: SC 09:37
PROVIDERS: ATTEND Nurse Practitioner Family
DX: G47.33 Obstructive sleep apnea (adult) (pediatric) (principal); E66.9 Obesity, unspecified; Z68.37 Body mass index [BMI] 37.0-37.9, adult
CPT/HCPCS: 99212; G0463

== ENCOUNTER 2021-06-21 08:00 | Outpatient (CLI) | payer MEDICARE, OTHER ==
[2021-06-21 12:02] LABS: CREATININE,URINE 258.5 mg/dL; MICROALBUM/CREATININE RATIO,UR 84.3 ug/mg (<30.0); MICROALBUMIN,URINE 21.8 mg/dL (0-300.0)
[2021-06-21 12:18] LABS: CALCIUM 8.5 mg/dL (8.5-10.3); CREATININE 1.3 mg/dL (0.6-1.2); POTASSIUM 4.2 mmol/L (3.5-5.0)
[2021-06-21 12:25] LABS: BASOPHILS # (AUTO) 0.1 10^3/uL (0.0-0.1); BASOPHILS % (AUTO) 0.8 %; EOSINOPHILS # (AUTO) 0.2 10^3/uL (0.0-0.7); EOSINOPHILS % (AUTO) 3.2 %; HCT - HEMATOCRIT 41.8 % (42.0-52.0); HGB - HEMOGLOBIN 13.6 g/dL (14.0-18.0); LYMPHOCYTES # (AUTO) 1.9 10^3/uL (1.5-3.5); LYMPHOCYTES % (AUTO) 25.6 %; MEAN CORPUSCULAR HEMOGLOBIN 30.4 pg (27.0-31.0); MEAN CORPUSCULAR HGB CONC 32.5 g/dL (32.0-36.0); MEAN CORPUSCULAR VOLUME 93.3 fL (80.0-94.0); MEAN PLATELET VOLUME 12.9 fL (7.4-11.4); MONOCYTES # (AUTO) 0.7 10^3/uL (0.0-1.0); MONOCYTES % (AUTO) 8.9 %; NEUTROPHILS # (AUTO) 4.4 10^3/uL (1.5-6.6); NEUTROPHILS % (AUTO) 60.3 %; PLT - PLATELET COUNT 178 10^3/uL (130-450); RED BLOOD COUNT 4.48 10^6/uL (4.70-6.10); RED CELL DISTRIBUTION WIDTH 13.8 % (12.0-15.0); WHITE BLOOD COUNT 7.3 x10^3/uL (4.8-10.8)
[2021-06-21 12:39] LABS: ESTIMATED AVERAGE GLUCOSE 192 mg/dL (70-100); HEMOGLOBIN A1c% 8.3 % (4.27-6.07)
== END 2021-06-21 23:59 | disposition home or self-care (01) ==
LOC: LAB.WCP 08:00
PROVIDERS: ATTEND Family Medicine
DX: I12.9 Hypertensive chronic kidney disease with stage 1 through stage 4 chronic kidney disease, or unspecified chronic kidney disease (principal); E11.22 Type 2 diabetes mellitus with diabetic chronic kidney disease; N18.2 Chronic kidney disease, stage 2 (mild); I73.9 Peripheral vascular disease, unspecified
CPT/HCPCS: 36415; 80048; 82043; 82570; 83036; 85025

== ENCOUNTER 2021-11-09 08:00 | Outpatient (CLI) | payer MEDICARE, OTHER | END 2021-11-09 23:59 | disposition home or self-care (01) | LOC: LAB.N 08:00 | PROVIDERS: ATTEND Nurse Practitioner | DX: U07.1 COVID-19 (principal) ==

== ENCOUNTER 2021-12-15 07:11 | Outpatient (CLI) | payer MEDICARE, OTHER ==
[2021-12-15 12:20] LABS: ESTIMATED AVERAGE GLUCOSE 171 mg/dL (70-100); HEMOGLOBIN A1c% 7.6 % (4.27-6.07)
[2021-12-15 12:25] LABS: CALCIUM 9.1 mg/dL (8.5-10.3); POTASSIUM 4.1 mmol/L (3.5-5.0)
[2021-12-15 12:36] LABS: CREATININE,URINE 132.1 mg/dL; MICROALBUM/CREATININE RATIO,UR 102.2 ug/mg (<30.0); MICROALBUMIN,URINE 13.5 mg/dL (0-300.0)
[2021-12-15 12:45] LABS: THYROID STIMULATING HORMONE 7.84 uIU/mL (0.34-5.60)
[2021-12-15 13:51] LABS: FREE T4 (FREE THYROXINE) 0.99 ng/dL (0.58-1.64)
== END 2021-12-15 07:12 | disposition home or self-care (01) ==
LOC: LAB.N 07:11
PROVIDERS: ATTEND Family Medicine
DX: E03.9 Hypothyroidism, unspecified (principal); E66.9 Obesity, unspecified; I48.91 Unspecified atrial fibrillation; N40.0 Benign prostatic hyperplasia without lower urinary tract symptoms; I10 Essential (primary) hypertension; E11.22 Type 2 diabetes mellitus with diabetic chronic kidney disease
CPT/HCPCS: 36415; 80048; 82043; 82570; 83036; 84439; 84443

== ENCOUNTER 2022-04-02 07:34 | Outpatient (CLI) | payer MEDICARE, OTHER ==
[2022-04-02 12:04] LABS: BASOPHILS # (AUTO) 0.1 10^3/uL (0.0-0.1); BASOPHILS % (AUTO) 0.7 %; EOSINOPHILS % (AUTO) 0.1 %; HCT - HEMATOCRIT 43.8 % (42.0-52.0); HGB - HEMOGLOBIN 14.4 g/dL (14.0-18.0); LYMPHOCYTES # (AUTO) 1.9 10^3/uL (1.5-3.5); LYMPHOCYTES % (AUTO) 25.8 %; MEAN CORPUSCULAR HGB CONC 32.9 g/dL (32.0-36.0); MEAN CORPUSCULAR VOLUME 91.3 fL (80.0-94.0); MEAN PLATELET VOLUME 12.6 fL (7.4-11.4); MONOCYTES # (AUTO) 0.6 10^3/uL (0.0-1.0); MONOCYTES % (AUTO) 8.3 %; NEUTROPHILS # (AUTO) 4.7 10^3/uL (1.5-6.6); NEUTROPHILS % (AUTO) 63.9 %; PLT - PLATELET COUNT 184 10^3/uL (130-450); RED CELL DISTRIBUTION WIDTH 13.6 % (12.0-15.0); WHITE BLOOD COUNT 7.4 x10^3/uL (4.8-10.8)
[2022-04-02 12:38] LABS: ESTIMATED AVERAGE GLUCOSE 243 mg/dL (70-100); HEMOGLOBIN A1c% 10.1 % (4.27-6.07)
[2022-04-02 12:49] LABS: THYROID STIMULATING HORMONE 9.16 uIU/mL (0.34-5.60)
[2022-04-02 12:59] LABS: ALBUMIN 4.2 g/dL (3.2-5.5); ALBUMIN/GLOBULIN RATIO 1.7 (1.0-2.2); ALKALINE PHOSPHATASE 61 IU/L (42-121); ALT ALANINE AMINOTRANSFERASE 21 IU/L (10-60); AST ASPARTATE AMINOTRANSFERASE 31 IU/L (10-42); BILIRUBIN,TOTAL 0.5 mg/dL (0.2-1.0); BUN - BLOOD UREA NITROGEN 16 mg/dL (6-20); CALCIUM 8.9 mg/dL (8.5-10.3); CARBON DIOXIDE - CO2 25 mmol/L (21-32); CHLORIDE 105 mmol/L (101-111); CHOL/HDL RATIO 2.7 (<5.0); CHOLESTEROL 125 mg/dL; CREATININE 1.3 mg/dL (0.6-1.2); GFR - MDRD 53 (>89); GLUCOSE 195 mg/dL (70-100); HDL CHOLESTEROL 46 mg/dL; LDL CHOLESTEROL,CALCULATED 46 mg/dL; POTASSIUM 4.6 mmol/L (3.5-5.0); SODIUM 140 mmol/L (135-145); TOTAL PROTEIN 6.7 g/dL (6.7-8.2); TRIGLYCERIDES 167 mg/dL; VLDL CHOLESTEROL 33 mg/dL
[2022-04-02 13:42] LABS: CREATININE,URINE 161.6 mg/dL; MICROALBUM/CREATININE RATIO,UR 142.9 ug/mg (<30.0); MICROALBUMIN,URINE 23.1 mg/dL (0-300.0)
[2022-04-02 14:07] LABS: FREE T4 (FREE THYROXINE) 0.82 ng/dL (0.58-1.64)
== END 2022-04-02 07:35 | disposition home or self-care (01) ==
LOC: LAB.N 07:34
PROVIDERS: ATTEND Family Medicine
DX: I12.9 Hypertensive chronic kidney disease with stage 1 through stage 4 chronic kidney disease, or unspecified chronic kidney disease (principal); E11.22 Type 2 diabetes mellitus with diabetic chronic kidney disease; N18.2 Chronic kidney disease, stage 2 (mild); E78.5 Hyperlipidemia, unspecified; E03.9 Hypothyroidism, unspecified
CPT/HCPCS: 36415; 80053; 80061; 82043; 82570; 83036; 83721; 84439; 84443; 85025

== ENCOUNTER 2022-05-03 11:21 | Outpatient (CLI) | payer MEDICARE, OTHER ==
[2022-05-03 12:11] VITALS: BP 128/74
--- NOTE | 2022-05-03 12:11 | SLEEP CARE CONSULTATION ---
Information from patient questionnaire entered by Hay Tee. I have reviewed and concur with the information entered by Hay Tee. This document represents the service I personally performed and the decisions made by , Nancy Sanz ARNP. History of Present Illness Service Date and Time: 05/03/2022 1121 Previous diagnosis: Very Severe, Obstructive Sleep Apnea-Hypopnea Syndrome AHI: 66.6 (in 2006) Reason for follow up: annual (LAST SEEN 03/2021) Equipment type: CPAP (RESMED Airsense 10) Equipment obtained from: [facility] (getting equipment as needed) Mask style: Nasal (Wisp) Mask brand: Respironics Backup mask available: Yes (old mask) Last cushion change: March 05 Prior sleep studies: Yes Year and Where: 2006 here HPI additional information: ROSSI ARAUJO was diagnosed to have very severe, AHI 66.6, obstructive sleep apnea-hypopnea syndrome and returned today for CPAP therapy annual follow-up. Sleep Study - Results Prior sleep studies: Yes Year and Where: 2006 here CPAP Compliance Data - Data Reviewed with Patient Average duration of nightly device use: 8 HOURS, 32 MINS Compliance rate %: 98 (180/180 days used) Current pressure setting (cmH2O): 10-13 Average residual AHI: 0.3 Central apnea: 0.1 Obstructive apnea: 0.1 Subjective Patient concerns: denies: aerophagia, mask discomfort, air blowing in eyes, mask leak noise, condensation in mask/hose, nasal congestion, dry mouth, nose, throat, epistaxis Observed to snore while using device: No Current pressure setting perceived as: comfortable On therapy, patient: reports: sleeping better, awakening more refreshed, being more awake and alert during the day, more rested overall. denies: drowsiness while driving Initial [place] Sleepiness Scale score: 4 (in 2006) Current [place] Sleepiness Scale score: 5 (05/03/22) Allergies and Home Medications Drug allergies reviewed: Yes (pencillin) Home medication list reviewed: Yes (no significant changes) Review of Systems Review of systems same as previous: Yes (no changes) Physical Exam Vital signs obtained and entered by: MELANIE GERMAN Blood Pressure: 128/74 (left arm ) Cuff size: regular Heart Rate: 78 O2 Saturation: 97 Height: 5 ft 7 in Weight: 242 lb Weight change since last visit: 2 lb gain Body Mass Index: 37.9 BMI Classification: Obese Impression and Plan 1. Obstructive Sleep Apnea-Hypopnea Syndrome, very severe, with good treatment compliance and good apnea control. On CPAP therapy, the patient has better sleep quality and is more rested overall. Patient has significant improvement of their sleep apnea and are satisfied with current CPAP therapy. Patient denies problems with oral dryness, nasal congestion, epistaxis, skin irritation or aerophagia. I will update patient DME prescription for supplies and he will follow-up next year. Patient's apnea severity and rationale for treatment to reduce apnea, improve sleep quality and reduce cardiovascular and cerebrovascular events was reviewed. I also reviewed the benefit of consistent device use of CPAP for hypertension. 2. Obesity, unspecified. Patient has gained weight. Currently patients BMI is 37.9. Obesity increases the risk of apnea, CPAP pressure requirements and overall health risks especially cardiovascular and diabetes. Thus patient is advised to lose weight. The patient's CPAP pressure range should accommodate some weight loss. Symptoms to report for additional pressure adjustment discussed. * Continue auto CPAP pressure at 10-13 cmH2O * Update supplies * Notify me if snoring with mask or feeling that the pressure is too much or too little * Attempt to lose weight * Call this office if any problems using CPAP * Return for follow up in 1 year, or sooner if concerns arise Counseling Topics: Spare mask, Weight loss health impact Visit Type: In Office Location of Provider: Other Time Spent with Patient (minutes): 20 Provider Statement: I spent 100% of the Face to Face Visit with the patient with greater than 50% spent counseling the patient and coordination of care.
== END 2022-05-03 11:22 | disposition home or self-care (01) ==
LOC: SC 11:21
PROVIDERS: ATTEND Nurse Practitioner Family
DX: G47.33 Obstructive sleep apnea (adult) (pediatric) (principal); E66.9 Obesity, unspecified; Z68.37 Body mass index [BMI] 37.0-37.9, adult
CPT/HCPCS: 99213; G0463; 99212

== ENCOUNTER 2022-07-04 07:48 | Outpatient (CLI) | payer MEDICARE, OTHER ==
[2022-07-04 11:48] LABS: CALCIUM 9.2 mg/dL (8.5-10.3); CREATININE 1.2 mg/dL (0.6-1.2); POTASSIUM 3.9 mmol/L (3.5-5.0)
[2022-07-04 12:03] LABS: CREATININE,URINE 127.7 mg/dL; MICROALBUM/CREATININE RATIO,UR 162.9 ug/mg (<30.0); MICROALBUMIN,URINE 20.8 mg/dL (0-300.0)
[2022-07-04 12:22] LABS: ESTIMATED AVERAGE GLUCOSE 183 mg/dL (70-100)
== END 2022-07-04 07:49 | disposition home or self-care (01) ==
LOC: LAB.N 07:48
PROVIDERS: ATTEND Family Medicine
DX: E11.22 Type 2 diabetes mellitus with diabetic chronic kidney disease (principal); E66.01 Morbid (severe) obesity due to excess calories
CPT/HCPCS: 36415; 80048; 82043; 82570; 83036

== ENCOUNTER 2022-07-17 12:44 | Outpatient (CLI) | payer MEDICARE, OTHER ==
--- NOTE | 2022-07-17 16:16 | XRAY Report ---
PROCEDURE: Lumbar Spine 2 View INDICATIONS: REPEATED FALLS,LOW BACK PAIN,CHRONIC TECHNIQUE: 2 views of the lumbar spine were acquired. COMPARISON: 12/16/2014 FINDINGS: Bones: 5 [id number] vertebrae are present. There is normal bony alignment. No vertebral body compression fractures. No suspicious bony lesions. Mild degenerative changes noted throughout the christine mbar spine. Mild L2-L3 facet hypertrophy. Moderate L3-L4, L4-L5 L5-S1 facet arthropathy. Soft tissues: Overlying bowel gas pattern is normal. No suspicious soft tissue calcifications. IMPRESSION: 1. Multilevel degenerative disc disease. 2. Multilevel facet arthropathy. 3. No fracture. No acute osseous lesion. If there is continued clinical concern for pathology, then M RI should be considered for further evaluation. Reviewed by: Anh Pink MD, PhD on 07/17/2022 4:15 PM PST Approved by: Anh Pink MD, PhD on 07/17/2022 4:15 PM PST Station ID: [id number]
--- NOTE | 2022-07-18 16:55 | XRAY Report ---
PROCEDURE: Hips 2V BILAT INDICATIONS: REPEATED FALLS,LOW BACK PAIN,CHRONIC TECHNIQUE: 2 views of the hip were acquired. COMPARISON: None FINDINGS: Bones: No fractures or dislocations. No suspicious bony lesions. The visualized pelvic ring appear s intact. Moderate bilateral degenerative hip joint space narrowing, left greater than right. No eros ions. Minimal periarticular osteophytes. Soft tissues: No suspicious soft tissue calcifications or masses. IMPRESSION: Moderate bilateral hip arthritic change. No visualized acute fracture or dislocation. However, occult injury cannot be excluded. Recommend kathy rt interval imaging follow-up in 7-10 days as clinically indicated for additional evaluation. Reviewed by: Dora Ford MD on 07/18/2022 4:54 PM PST Approved by: Dora Ford MD on 07/18/2022 4:54 PM PST Station ID: [id number]
== END 2022-07-17 12:45 | disposition home or self-care (01) ==
LOC: DI 12:44
PROVIDERS: ATTEND Nurse Practitioner
DX: R29.6 Repeated falls (principal); M51.36 Other intervertebral disc degeneration, lumbar region; M47.816 Spondylosis without myelopathy or radiculopathy, lumbar region; M16.0 Bilateral primary osteoarthritis of hip

== ENCOUNTER 2022-07-17 13:11 | Outpatient (CLI) | payer MEDICARE, OTHER | END 2022-07-17 13:12 | disposition home or self-care (01) | LOC: MAC.MOP 13:11 | PROVIDERS: ATTEND Nurse Practitioner | DX: R00.2 Palpitations (principal); R29.6 Repeated falls; M51.36 Other intervertebral disc degeneration, lumbar region; M47.816 Spondylosis without myelopathy or radiculopathy, lumbar region; M16.0 Bilateral primary osteoarthritis of hip | CPT/HCPCS: 93246 ==

== ENCOUNTER 2022-08-02 13:10 | Outpatient (CLI) | payer MEDICARE, OTHER ==
--- NOTE | 2022-08-02 16:44 | MRI Report ---
PROCEDURE: LUMBAR SPINE WO INDICATIONS: REPEATED FALLS, LUMBAR RADICULOPATHY TECHNIQUE: Noncontrast sagittal T1 spin echo and T2 fast echo, sagittal STIR, axial T1 and T2 fast spin echo thr ough the lumbar spine. In cases with scoliosis, additional coronal T2 fast spin echo may be performe d. COMPARISON: None. FINDINGS: Image quality: Excellent. Alignment and Curvature: No plain films are available for comparison. Thus, for numbering purposes, 5 lumbar type vertebral bodies will be presumed for the current report. This should be confirmed with plain film correlation prior to any lumbar spinal intervention. Roughly 3 mm of retrolisthesis of L2 on L3. 2 mm of retrolisthesis of L1 on L2. Bone Marrow: Marrow is of normal overall signal. No acute vertebral body compression fractures. Mi ld reactive signal throughout the endplates of the lumbar lower thoracic spine. Spinal Cord: Conus medullaris terminates at the mid L2 level. Visualized cord demonstrates normal s ignal and size. Paraspinous Soft Tissues: No paravertebral masses. T12-L1: Moderate disc desiccation. Mild diffuse disc bulge. Mild facet and ligament flavum hypertrop hy. Mild epidural lipomatosis. Mild canal stenosis. No foraminal stenosis. L1-L2: Moderate disc desiccation. Mild diffuse disc bulge. Mild facet and ligament flavum hypertro phy. Mild canal stenosis. Mild bilateral foraminal stenosis. L2-L3: Moderate disc desiccation. Mild diffuse disc bulge. Mild facet and ligament flavum hypertro phy. Mild epidural lipomatosis. Mild canal stenosis. Moderate right and mild left foraminal stenosis. L3-L4: Moderate disc desiccation. Mild diffuse disc bulge. Mild facet and ligament flavum hypertrop hy. Mild epidural lipomatosis. Mild canal stenosis. Moderate bilateral foraminal stenosis. L4-L5: Moderate disc desiccation. Mild diffuse disc bulge. Mild facet and ligament flavum hypertrop hy. Mild upper lipomatosis. Mild canal stenosis. Mild bilateral foraminal stenosis. L5-S1: Moderate disc desiccation. Mild diffuse disc bulge. Mild facet and ligament flavum hypertrop hy. Mild canal stenosis. Moderate bilateral foraminal stenosis. IMPRESSION: 1. Multilevel degenerative disc and facet disease, in addition to epidural lipomatosis and ligamentum flavum hypertrophy. 2. Mild multilevel canal stenoses. 3. Multilevel foraminal stenoses, worst at L2-L3, L3-L4, and L5-S1, where there are moderate foramina l stenoses. 4. Five lumbar type vertebral bodies were presumed for the purposes of the current report. Correlati on with plainfilms for numbering purposes is recommended prior to any lumbar spinal intervention. Reviewed by: Nayla Avilez MD on 08/02/2022 4:43 PM PST Approved by: Nayla Avilez MD on 08/02/2022 4:43 PM PST Station ID: [id number]
== END 2022-08-02 13:11 | disposition home or self-care (01) ==
LOC: DI 13:10
PROVIDERS: ATTEND Nurse Practitioner
DX: R29.6 Repeated falls (principal); M47.26 Other spondylosis with radiculopathy, lumbar region; M51.16 Intervertebral disc disorders with radiculopathy, lumbar region; M48.061 Spinal stenosis, lumbar region without neurogenic claudication; M48.07 Spinal stenosis, lumbosacral region

== ENCOUNTER 2022-08-16 14:49 | Outpatient (CLI) | payer MEDICARE, OTHER | END 2022-08-16 14:50 | disposition home or self-care (01) | LOC: MAC.INF 14:49 | PROVIDERS: ATTEND Nurse Practitioner | DX: R00.2 Palpitations (principal); I47.1 Supraventricular tachycardia; I49.1 Atrial premature depolarization; I49.3 Ventricular premature depolarization; R94.31 Abnormal electrocardiogram [ECG] [EKG] | CPT/HCPCS: 93248 ==

== ENCOUNTER 2023-01-31 07:31 | Outpatient (CLI) | payer MEDICARE, OTHER ==
[2023-01-31 12:21] LABS: CALCIUM 9.4 mg/dL (8.5-10.3); CREATININE 1.1 mg/dL (0.6-1.3)
[2023-01-31 12:31] LABS: MICROALBUM/CREATININE RATIO,UR 221.5 ug/mg (<30.0); MICROALBUMIN,URINE 26.8 mg/dL
[2023-01-31 12:55] LABS: ESTIMATED AVERAGE GLUCOSE 186 mg/dL (70-100); HEMOGLOBIN A1c% 8.1 % (4.27-6.07)
== END 2023-01-31 07:32 | disposition home or self-care (01) ==
LOC: LAB.N 07:31
PROVIDERS: ATTEND Family Medicine
DX: E11.65 Type 2 diabetes mellitus with hyperglycemia (principal); M54.16 Radiculopathy, lumbar region; K21.9 Gastro-esophageal reflux disease without esophagitis; N40.0 Benign prostatic hyperplasia without lower urinary tract symptoms
CPT/HCPCS: 36415; 80048; 82043; 82570; 83036

== ENCOUNTER 2023-05-03 11:06 | Outpatient (CLI) | payer MEDICARE, OTHER ==
--- NOTE | 2023-05-03 11:36 | Sleep Patient Instructions ---
Sleep Center Visit Summary - Patient Visit Information Reason for Visit: Annual visit - Patient Instructions Additional Instructions: You will continue with CPAP therapy with pressure set at 10-13 cmH2O. A supply prescription will be updated with your DME. We encourage you to continue to try to lose weight. Please follow up with the sleep care office in 1 year. - Clinic Information Contact: [facility] [address] [place] [address] [email or web address] T: [phone]
--- NOTE | 2023-05-03 11:39 | SLEEP CARE CONSULTATION ---
Information from patient questionnaire entered by Falguni Pinedo. I have reviewed and concur with the information entered by Falguni Pinedo. This document represents the service I personally performed and the decisions made by me, Nancy Sanz ARNP. History of Present Illness Service Date and Time: 05/03/2023 1106 Previous diagnosis: Very Severe, Obstructive Sleep Apnea-Hypopnea Syndrome AHI: 66.6 (in 2006) Reason for follow up: annual (LAST SEEN 04/2022) Equipment type: CPAP (RESMED Airsense 10; s/u 01/2020) Equipment obtained from: [facility] (getting equipment as needed) Mask style: Nasal (Wisp) Mask brand: Respironics Backup mask available: Yes (old mask) Last cushion change: Feb Prior sleep studies: Yes Year and Where: 2006 here HPI additional information: ROSSI ARAUJO was diagnosed to have very severe, AHI 66.6, obstructive sleep apnea-hypopnea syndrome and returned today for CPAP therapy annual follow-up. Sleep Study - Results Prior sleep studies: Yes Year and Where: 2006 here CPAP Compliance Data - Data Reviewed with Patient Average duration of nightly device use: 8 HRS 26 MINS Compliance rate %: 98 (05/02/2022-05/01/2023; 362/365 days used) Current pressure setting (cmH2O): 10-13 Average residual AHI: 0.3 Central apnea: 0.1 Obstructive apnea: 0.1 Average large leak: 0.9 L/min Subjective Missed days of use due to: reports: other (power outages) Patient concerns: reports: mask leak noise (puts towel over top vent and reduces noise well). denies: aerophagia, mask discomfort, air blowing in eyes, condensation in mask/hose, nasal congestion, dry mouth, nose, throat, epistaxis Observed to snore while using device: No Current pressure setting perceived as: comfortable On therapy, patient: reports: sleeping better, awakening more refreshed, being more awake and alert during the day, more rested overall. denies: drowsiness while driving Initial [place] Sleepiness Scale score: 4 (in 2006) Current [place] Sleepiness Scale score: 7 (05/03/23) Allergies and Home Medications Known drug allergies: Yes (as listed) Drug allergies reviewed: Yes Home medication list reviewed: Yes (Fargia, Trulicity; stopped Metformin) Allergy and home medication list: Allergies Penicillins Allergy (Verified 05/02/23 16:22) Rash Review of Systems Review of systems same as previous: Yes (NO CHANGE) Physical Exam Vital signs obtained and entered by: FALGUNI Pacheco MA Blood Pressure: 132/80 (LEFT ARM) Cuff size: regular Heart Rate: 85 O2 Saturation: 96 Height: 5 ft 7 in Weight: 234 lb 3.2 oz (with clothes on) Weight change since last visit: 12 lb loss Body Mass Index: 36.6 BMI Classification: Obese Impression and Plan 1. Obstructive Sleep Apnea-Hypopnea Syndrome, very severe, with good treatment compliance and good apnea control. On CPAP therapy, the patient has better sleep quality and is more rested overall. Patient has significant improvement of their sleep apnea and is satisfied with current CPAP therapy. Patient denies problems with oral dryness, nasal congestion, epistaxis, skin irritation or aerophagia. Patient's apnea severity and rationale for treatment to reduce apnea, improve sleep quality and reduce cardiovascular and cerebrovascular events was reviewed. I also reviewed the benefit of consistent device use of CPAP for hypertension. 2. Obesity, unspecified. Currently patients BMI is 36.6. He has lost weight. Obesity increases the risk of apnea, CPAP pressure requirements and overall health risks especially cardiovascular and diabetes. Thus patient is advised to continue to try to lose weight. * Continue auto CPAP pressure at 10-13 cmH2O * Update supply prescription * Notify me if snoring with mask or feeling that the pressure is too much or too little * Attempt to lose weight * Call this office if any problems using CPAP * Return for follow up in 1 year, or sooner if concerns arise Counseling Topics: Spare mask, Weight loss health impact Prescriptions: Device supplies Follow up with Sleep Care in: 1 year Visit Type: In Office Time Spent with Patient (minutes): 15 Provider Statement: I spent 100% of the Face to Face Visit with the patient with greater than 50% spent counseling the patient and coordination of care.
[2023-05-03 11:46] VITALS: BP 132/80; O2SAT 96
== END 2023-05-03 11:07 | disposition home or self-care (01) ==
LOC: SC 11:06
PROVIDERS: ATTEND Nurse Practitioner Family
DX: G47.33 Obstructive sleep apnea (adult) (pediatric) (principal); E66.9 Obesity, unspecified; Z68.36 Body mass index [BMI] 36.0-36.9, adult
CPT/HCPCS: 99212; G0463

== ENCOUNTER 2023-08-29 10:17 | Outpatient (CLI) | payer MEDICARE, OTHER ==
[2023-08-29 12:06] LABS: BASOPHILS # (AUTO) 0.1 10^3/uL (0.0-0.1); BASOPHILS % (AUTO) 0.9 %; EOSINOPHILS # (AUTO) 0.1 10^3/uL (0.0-0.7); EOSINOPHILS % (AUTO) 0.9 %; HCT - HEMATOCRIT 48.8 % (42.0-52.0); HGB - HEMOGLOBIN 15.2 g/dL (14.0-18.0); LYMPHOCYTES # (AUTO) 2.1 10^3/uL (1.5-3.5); LYMPHOCYTES % (AUTO) 31.5 %; MEAN CORPUSCULAR HEMOGLOBIN 29.5 pg (27.0-31.0); MEAN CORPUSCULAR HGB CONC 31.1 g/dL (32.0-36.0); MEAN CORPUSCULAR VOLUME 94.8 fL (80.0-94.0); MEAN PLATELET VOLUME 12.1 fL (7.4-11.4); MONOCYTES # (AUTO) 0.7 10^3/uL (0.0-1.0); MONOCYTES % (AUTO) 10.1 %; NEUTROPHILS # (AUTO) 3.6 10^3/uL (1.5-6.6); NEUTROPHILS % (AUTO) 55.4 %; PLT - PLATELET COUNT 207 10^3/uL (130-450); RED BLOOD COUNT 5.15 10^6/uL (4.70-6.10); RED CELL DISTRIBUTION WIDTH 13.7 % (12.0-15.0); WHITE BLOOD COUNT 6.6 x10^3/uL (4.8-10.8)
[2023-08-29 12:24] LABS: THYROID STIMULATING HORMONE 3.82 uIU/mL (0.34-5.60)
[2023-08-29 12:25] LABS: ALBUMIN 4.5 g/dL (3.2-5.5); ALBUMIN/GLOBULIN RATIO 1.7 (1.0-2.2); ALKALINE PHOSPHATASE 67 IU/L (42-121); ALT ALANINE AMINOTRANSFERASE 9 IU/L (10-60); AST ASPARTATE AMINOTRANSFERASE 15 IU/L (10-42); BILIRUBIN,TOTAL 0.5 mg/dL (0.2-1.0); BUN - BLOOD UREA NITROGEN 17 mg/dL (6-20); CALCIUM 9.8 mg/dL (8.5-10.3); CARBON DIOXIDE - CO2 29 mmol/L (21-32); CHLORIDE 107 mmol/L (101-111); CHOL/HDL RATIO 3.4 (<5.0); CHOLESTEROL 148 mg/dL; CREATININE 1.3 mg/dL (0.6-1.3); GFR - MDRD 53 (>89); GLUCOSE 105 mg/dL (74-104); HDL CHOLESTEROL 44 mg/dL; LDL CHOLESTEROL,CALCULATED 72 mg/dL; LDL/HDL RATIO 1.6 (<3.6); POTASSIUM 3.9 mmol/L (3.5-4.5); SODIUM 142 mmol/L (135-145); TOTAL PROTEIN 7.1 g/dL (6.4-8.9); TRIGLYCERIDES 160 mg/dL (48-352); VLDL CHOLESTEROL 32 mg/dL
[2023-08-29 12:35] LABS: ESTIMATED AVERAGE GLUCOSE 180 mg/dL (70-100); HEMOGLOBIN A1c% 7.9 % (4.27-6.07)
== END 2023-08-29 10:18 | disposition home or self-care (01) ==
LOC: LAB.N 10:17
PROVIDERS: ATTEND Family Medicine
DX: E11.22 Type 2 diabetes mellitus with diabetic chronic kidney disease (principal); N18.2 Chronic kidney disease, stage 2 (mild); M54.16 Radiculopathy, lumbar region; E11.65 Type 2 diabetes mellitus with hyperglycemia; E03.9 Hypothyroidism, unspecified; I48.91 Unspecified atrial fibrillation; N40.0 Benign prostatic hyperplasia without lower urinary tract symptoms; E78.5 Hyperlipidemia, unspecified
CPT/HCPCS: 36415; 80053; 80061; 83036; 83721; 84443; 85025

== ENCOUNTER 2024-02-12 07:57 | Outpatient (CLI) | payer MEDICARE, OTHER ==
[2024-02-12 11:56] LABS: CALCIUM 9.4 mg/dL (8.5-10.3); CREATININE 1.3 mg/dL (0.6-1.3); POTASSIUM 4.5 mmol/L (3.5-4.5)
[2024-02-12 11:58] LABS: CREATININE,URINE 110.2 mg/dL; MICROALBUM/CREATININE RATIO,UR 91.7 ug/mg (<30.0); MICROALBUMIN,URINE 10.1 mg/dL
[2024-02-12 12:17] LABS: ESTIMATED AVERAGE GLUCOSE 163 mg/dL (70-100); HEMOGLOBIN A1c% 7.3 % (4.27-6.07)
== END 2024-02-12 07:58 | disposition home or self-care (01) ==
LOC: LAB.N 07:57
PROVIDERS: ATTEND Family Medicine
DX: E11.65 Type 2 diabetes mellitus with hyperglycemia (principal)
CPT/HCPCS: 36415; 80048; 82043; 82570; 83036